=== PATIENT | female | born 1970 | race Caucasian/White ===

== ENCOUNTER → 2019-10-20 | Outpatient (CLI) | payer OTHER ==
--- NOTE | 2019-10-24 12:17 | HM ---
HOLTER MONITOR REPORT A 49-year-old female with palpitations. A 48 hour Holter monitor shows sinus rhythm with heart rate ranging from 67 to 156 beats per minute, average 89 beats per minute. Occasional PVCs noted. No sustained or nonsustained arrhythmias. No arrhythmias noted during her symptoms of shortness of breath or palpitations. [id number] / BATOOLN: [id number] /
== END | disposition home or self-care (01) ==
LOC: RADECHMAIN 12:11
PROVIDERS: ATTEND Internal Medicine
DX: R00.2 Palpitations (principal)
CPT/HCPCS: 93225; 93226